=== PATIENT | male | born 1940 ===

== ENCOUNTER 2022-06-19 13:17 | Outpatient (CLI) | payer MEDICARE, SELFPAY ==
--- NOTE | 2022-06-19 13:38 | CT_ITS ---
WS: [id number] CT ABDOMEN AND PELVIS NONCONTRAST HISTORY: GROSS HEMATURIA TECHNIQUE: Imaging performed through the abdomen and pelvis. Coronal and sagittal reformats are submi tted. All CT scans at [facility] use at least one of these dose optimization techniques: auto mated exposure control; mA and/or kV adjustment per patient size (includes targeted exams where dose is matched to clinical indication); or iterative reconstruction. DLP: 767.98 mGy.cm COMPARISON: None available. Lower thorax: Lung bases are hyperexpanded secondary to emphysema. Normal size heart. Small hiatal he rnia. Liver: Normal size liver. No mass or bile duct dilatation. Gallbladder: Normal gallbladder. Pancreas: Diffuse fatty replacement. No bile evidence for pancreatitis. Spleen: Normal. Adrenal glands: Normal RIGHT adrenal gland. 9 mm LEFT adrenal myelolipoma. Right kidney: Normal size kidney with no mass or hydronephrosis. Left kidney: Normal size kidney with no mass or hydronephrosis. Aorta: Mild atherosclerosis abdominal aorta with no aneurysm. Very small central mesenteric lymph nodes. These lymph nodes are less than a centimeter. GI tract: Stomach is moderately distended with fluid and food products. No small bowel obstruction. M oderate diffuse constipation and tortuosity of the colon. There is diffuse diverticular disease. No e vidence for acute diverticulitis. Normal appendix. Abdominal wall: Negative. No hernia. Pelvis: Moderately distended urinary bladder. There is beam hardening artifact from the patient's LEF T hip arthroplasty obscuring portions of the bladder. There are several calcifications in the urinary bladder. There is also layering debris in the dependent portion of the bladder which may be an addit ional stones or sludge. The entire bladder wall is not well visualized. Patent bilateral inguinal can als containing fat only. 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 No destructive bone lesio ns. Prior LEFT hip arthroplasty. CT/CT abdomen pelvis wo con [id number] IMPRESSION: 1. No renal calcifications or obstruction. 2. Several small bladder calcifications and possible debris in the dependent u rinary bladder. Portions of the bladder are obscured by artifact from the LEFT hip arthroplasty. 3. Diffuse moderate constipation with torres-diverticular disease. No evidence fo r acute diverticulitis. 4. Normal appendix. 5. No ascites or free air.
== END 2022-06-19 13:18 | disposition home or self-care (01) ==
LOC: RAD 13:23
PROVIDERS: PCP Family Medicine; Visit Provider Family Medicine
DX: R31.0 Gross hematuria (principal); K59.00 Constipation, unspecified; K57.30 Diverticulosis of large intestine without perforation or abscess without bleeding; Z96.642 Presence of left artificial hip joint
CPT/HCPCS: 74176